=== PATIENT | male | born 1980 | race Caucasian/White ===

== ENCOUNTER → 2016-06-23 | Day surgery (SDC) | payer OTHER ==
[~2016-06-23] MED LIST: ACETAMINOPHEN 1000 MG/100 ML VIAL IV ONE; BUPIVACAINE LIPOSOME PF 1.3% 20 ML VIAL ONE; KETOROLAC TROMETHAMINE 30 MG/ML (IVP) VIAL IV PUSH ONE; LACTATED RINGER'S 1000 ML INJ 1,000 ML ONE; MIDAZOLAM HCL 2 MG/2 ML VIAL ONE; ONDANSETRON HCL 4 MG/2 ML VIAL IV PUSH ONE; PROPOFOL 200 MG/20 ML AMP IV ONE; Z.0.NO CURRENT MEDS; ceFAZolin 2 GM PREMIX 50 ML ONE
--- NOTE | 2016-06-24 20:49 | MP ---
cc: ADELINENITESH DATE OF SURGERY 06/23/2016 PREOPERATIVE DIAGNOSIS Right inguinal hernia. POSTOPERATIVE DIAGNOSIS Right inguinal hernia PROCEDURE Repair of right inguinal hernia with [employer] mesh. SURGEON Tosha Osorio MD ANESTHESIA General OPERATIVE FINDINGS The patient was found to have a displaced inguinal floor somewhat to the medial aspect of the internal ring as the patient had a small to moderate size indirect left inguinal hernia with no incarcerated viscera. OPERATIVE PROCEDURE The patient was brought to the operating room and after satisfactory general anesthesia was obtained, the right groin was prepped and draped in the usual sterile fashion. 1.3% Exparel was used to infiltrate the skin for local anesthesia. A transverse right inguinal incision was made, carried down sharply through the subcutaneous tissue with the cautery being used for hemostasis. The incision was deepened to the external oblique fascia which was opened in the direction of its fibers down to and through the external ring. The underside of the fascia was cleaned and the spermatic cord isolated with a Nilson drain. The hernia sac was dissected free from the cord structures and then circumferentially scored to allow reduction in the properitoneal space without problem. The inguinal floor was then closed with interrupted 0 Vicryl sutures brought between the internal oblique and the shelving edge of the inguinal ligament. Once the internal ring had been recreated in this fashion, a piece of [employer] mesh was cut to the appropriate shape. It was secured anterior to the repair by pressing its posterior Vicryl hooks into the surrounding tissues. A suture of 0 Prolene was brought between the mesh and the pubis and another suture between the mesh and the lateral aspect of the repair just lateral to the internal ring and secured to the inguinal ligament as well. The area was checked for hemostasis which was seen to be satisfactory. The external oblique fascia was closed with interrupted 3-0 Vicryl sutures. The subcutaneous tissue was closed with interrupted 3-0 Vicryl sutures. The remainder of the 20 mL of Exparel was infiltrated into the surrounding tissues. The skin was then closed with interrupted 4-0 PDS subcuticular stitches. Steri-Strips were applied and the patient was then awakened and taken from the operating room in satisfactory condition, having tolerated the procedure without a problem. Estimated blood loss was less than 5 mL. The instrument, sponge, and needle counts were reported as being correct x2 at the end of the procedure. MD NIKHIL Mccain/ /1:14 PM /8:32 PM
== END | disposition home or self-care (01) ==
LOC: ESDC 10:12
PROVIDERS: ATTEND Surgery
DX: K40.90 Unilateral inguinal hernia, without obstruction or gangrene, not specified as recurrent (principal)
CPT/HCPCS: 00830; 49505; C1781; C9290; J0131; J0690; J1885; J2250; J2405; J3010; J7120